=== PATIENT | male | born 1940 | race Caucasian/White ===

== ENCOUNTER 2017-07-21 12:40 | Outpatient (CLI) | payer MEDICARE | END 2017-07-21 12:41 | disposition home or self-care (01) | LOC: BICRAD 12:40 | PROVIDERS: ATTEND Internal Medicine Rheumatology | DX: M16.12 Unilateral primary osteoarthritis, left hip (principal) ==

== ENCOUNTER 2017-11-24 12:37 | Outpatient (CLI) | payer MEDICARE ==
--- NOTE | 2017-11-24 13:27 | RAD ---
TWO VIEWS CHES: DATE: 11/24/17. HISTORY: Dyspnea. COMPARISON: Comparison is made to previous exam from 10/19/2017. FINDINGS: Two views chest are obtained. PA and lateral views of the chest demonstrate ectasia of the aorta. The lungs are well aerated. No evidence of acute intrathoracic abnormality is seen. NO evidence of effusions, pneumothorax, or pneu mothorax is seen. IMPRESSION: Ectasia of the aorta; otherwise, unremarkable 2 views chest. POS: [facility]
== END 2017-11-24 12:38 | disposition home or self-care (01) ==
LOC: RAD 12:37
PROVIDERS: ATTEND Internal Medicine Critical Care Medicine
DX: R06.00 Dyspnea, unspecified (principal); I77.819 Aortic ectasia, unspecified site
CPT/HCPCS: 71046

== ENCOUNTER 2017-12-18 00:16 | Day surgery (SDC) | payer MEDICARE ==
[2017-12-18 01:08] LABS: #Basophils 0.1 thou/uL (0.0-0.2); #Eosinphils 0.1 thou/uL (0.0-0.7); #Lymphocytes 1.6 thou/uL (1.20-3.40); #Monocytes 0.6 thou/uL (0.11-0.59); #Neutrophils 11.3 thou/uL (1.40-6.50); %Basophils 0.4 % (0.0-1.0); %Eosinophils 0.7 % (0.0-10.0); %Lymphocytes 11.8 % (21.0-51.0); %Monocytes 4.2 % (0.0-10.0); %Neutrophils 82.9 % (42.0-75.0); Hemoglobin 15.3 g/dL (14.0-18.0); Mean Corpuscular Hemoglobin 30.6 pg (27.0-31.0); Mean Corpuscular Volume 92.8 fL (78.0-98.0); Mean Platelet Volume 7.8 fL (7.4-10.4); Platelet Count 247 thou/uL (130-400); RBC Distribution Width 11.4 % (11.5-14.5); Red Blood Cell (RBC) Count 4.99 mill/uL (4.70-6.10); White Blood Cell (WBC) Count 13.6 thou/uL (4.8-10.8)
[2017-12-18 01:33] LABS: ALT (SGPT) 32 U/L (8-55); AST (SGOT) 38 U/L (5-34); Albumin 4.5 g/dL (3.4-4.8); Alkaline Phosphatase 39 U/L (40-150); Anion Gap 15 mmol/L (10-20); BUN (Urea Nitrogen) 21 mg/dL (8.4-25.7); Bilirubin, Total 0.8 mg/dL (0.2-1.2); Calc. Creatinine Clearance 0 mL/min (70-130); Calcium 9.4 mg/dL (7.8-10.44); Carbon Dioxide 25 mmol/L (23-31); Chloride 104 mmol/L (98-107); Estimated GFR-MDRD 87; Globulin 3.6 g/dL (2.4-3.5); Glucose 120 mg/dL (83-110); Potassium 5.1 mmol/L (3.5-5.1); Protein, Total 8.1 g/dL (5.8-8.1); Sodium 139 mmol/L (136-145)
[2017-12-18 01:36] LABS: CKMB 0.8 ng/mL (0-6.6); Troponin I Less than 0.010 ng/mL (< 0.028)
--- NOTE | 2017-12-18 03:37 | OP ---
DATE OF PROCEDURE: 12/18/2017 SURGEON: Memo Mccall M.D. [employer]PER[employer] SURGEON: None. PROCEDURE: Esophagogastroduodenoscopy, diagnostic. INDICATION: 1. Possible esophageal foreign body. 2. Chronic dysphagia. MEDICATIONS: See anesthesia record. FINDINGS: After discussion of the risks, benefits and alternatives of the procedure, informed consen t was obtained and witnessed. Pre-endoscopic cardiopulmonary examination was satisfactory. Timeout was performed before sedation was achieved. Sedation was achieved with anesthesia assistance in the endoscopy unit. A Pentax adult upper endoscope was placed into the oropharynx and passed through the cricopharyngeus under direct visualization. The esophageal mucosa appeared normal in the proximal a nd mid esophagus. In the distal esophagus for the last 3-4 cm, there is severe maceration of the eso phageal mucosa, consistent with recent esophageal foreign body impaction. There is no esophageal aury d bolus present at the time of the examination; however. There is no esophageal mass or discrete str icture visualized, that was difficult to tell due to the degree of acute maceration. The endoscope w as passed easily into the stomach. Forward and retroflexed views of the entire gastric mucosa were o btained. The gastric mucosa appeared normal. The endoscope was passed through the pylorus and into the first and second portions of the duodenum, which also appeared normal. I did not perform esophag eal dilation on this examination, due to the severe maceration of the distal esophagus and increased risk of complications in this context. The upper endoscope was completely withdrawn and the patient allowed to recover. The patient tolerated the procedure well. There were no immediate post-procedur e complications. IMPRESSION: 1. Severe maceration of the distal esophagus just above the GE junction, consistent with recent esop hageal food bolus impaction, which is now passed. 2. No esophageal mass or stricture visualized. 3. Otherwise, normal esophagogastroduodenoscopy. RECOMMENDATIONS: 1. We will start him on a daily PPI. 2. He needs to chew his food thoroughly. 3. Liquid diet tomorrow, advance slowly as tolerated the following day. 4. We will plan to repeat EGD on an outpatient basis in the next few weeks, for reassessment and to perform esophageal dilation.
--- NOTE | 2017-12-18 03:39 | HP ---
DATE OF CONSULTATION: 12/18/2017 REQUESTING PHYSICIAN: Dr. Rutherford. REASON FOR CONSULTATION: Suspected esophageal food bolus impaction. HISTORY OF PRESENT ILLNESS: Mark Islas is a 77-year-old man with a documented history of COPD a nd dementia. He tells me that he has never undergone EGD in the past, but that for several years, he has had intermittent dysphagia to solids usually meat. He chews with dentures, but he eats pretty f ast. About 12 hours ago, he was eating chicken pretty fast and he felt as if it lodged behind the st ernum. He immediately had a sensation that it was stuck and started spitting up his secretions. He was unable to tolerate any oral fluid intake for the rest of the day. He presented to the [facility] where measures such as glucagon and Coke were tried, all with no effect. He was transferred here [facility]. The patient was quite uncomfortable for most of 12 hours, though he state s within the last 30 minutes, he feels a bit better and feels like maybe this has passed. He says th is has happened several times before, but never for this long and again he has never been evaluated b efore. He denies any abdominal pain or cough. He has no other symptoms. He is hemodynamically stab le. PAST MEDICAL HISTORY: COPD, dementia, hyperlipidemia, depression. ALLERGIES: He reports allergy to CODEINE, also has documented allergies to LEVAQUIN and PREDNISONE. OUTPATIENT MEDICATIONS: Atorvastatin, memantine, donepezil, aspirin 81 mg daily, duloxetine, albuter ol inhaler. FAMILY HISTORY: Noncontributory. SOCIAL HISTORY: He does drink some alcohol every day. No drug use. He is a former smoker but quit 40 years ago. PHYSICAL EXAMINATION: VITAL SIGNS: Temperature 98.1, blood pressure 153/77, pulse 80, 95% oxygen saturation on room air. GENERAL: Elderly 77-year-old man lying in bed comfortably in no distress. MENTAL: He is alert and oriented to person, place. SKIN: No jaundice, no rashes were palpable. EYES: No scleral icterus. Extraocular movements intact. ENT: Mucous membranes moist, no oral lesions. LYMPH: No submandibular, supraclavicular lymphadenopathy. THYROID: Nontender to palpation. HEART: Regular rate and rhythm. LUNGS: Clear to auscultation bilaterally. ABDOMEN: Bowel sounds present, soft and nontender to palpation. EXTREMITIES: No peripheral edema. VESSELS: Radial pulses 2+ bilaterally. NEUROLOGICAL: Cranial nerves II-XII intact bilaterally. No focal deficits. ASSESSMENT AND PLAN: 1. Possible esophageal foreign body. 2. Chronic dysphagia. The patient has had a marked improvement in his foreign body sensation, just over the past few minute s, and is no longer spitting up his secretions. That being said, he says this has been going on for a long time and this was the worst episode he has ever had, and he has never been evaluated before. We will go ahead and proceed with upper endoscopy tonight to assure no continued obstruction, rule ou t malignancy or stricture. I will consider esophageal dilation depending on findings, though we will have to see what the esophagus looks like in the context of a recent food impaction before making th at decision. The patient desires to proceed.
[2017-12-18] MEDS ORDERED: PROPOFOL 200 MG/20 ML VIAL ONE (15:29)
--- NOTE | 2017-12-19 08:44 | EKG ---
Test Reason : Blood Pressure : / mmHG Vent. Rate : 081 BPM Atrial Rate : 081 BPM P-R Int : 130 ms QRS Dur : 134 ms QT Int : 410 ms P-R-T Axes : 021 132 045 degrees QTc Int : 476 ms Normal sinus rhythm Right bundle branch block Abnormal ECG Confirmed by CARMELITA BANDA ([id number]) on 12/19/2017 8:44:25 AM Referred By: Confirmed By:CARMELITA BANDA
== END 2017-12-18 04:20 | disposition home or self-care (01) ==
LOC: ERS 00:16 → SDC/OP 02:31
PROVIDERS: ATTEND Internal Medicine
PROC: 0DJ08ZZ Inspection of Upper Intestinal Tract, Via Natural or Artificial Opening Endoscopic (ICD-10-PCS; principal; 2017-12-18)
DX: R13.10 Dysphagia, unspecified (principal); K22.8 Other specified diseases of esophagus; J44.9 Chronic obstructive pulmonary disease, unspecified; F03.90 Unspecified dementia, unspecified severity, without behavioral disturbance, psychotic disturbance, mood disturbance, and anxiety; E78.5 Hyperlipidemia, unspecified; F32.9 Major depressive disorder, single episode, unspecified; Z87.891 Personal history of nicotine dependence; Z79.82 Long term (current) use of aspirin; Z79.899 Other long term (current) drug therapy; Z88.5 Allergy status to narcotic agent; Z88.8 Allergy status to other drugs, medicaments and biological substances
CPT/HCPCS: 80053; 82553; 84484; 85025; 93005; 96360; J2704

== ENCOUNTER 2018-01-11 13:27 | Outpatient (CLI) | payer MEDICARE | END 2018-01-11 13:28 | disposition home or self-care (01) | LOC: CP 13:27 | PROVIDERS: ATTEND Internal Medicine Critical Care Medicine | DX: J44.9 Chronic obstructive pulmonary disease, unspecified (principal) | CPT/HCPCS: 94010; 94727 ==

== ENCOUNTER 2018-06-02 09:21 | Day surgery (SDC) | payer MEDICARE ==
[2018-06-01 15:47] VITALS: BMI 25.2
[2018-06-02] MEDS ORDERED: Albuterol Sulfate 1.25 MG/3 ML NEB ONE ×2 (09:36→12:52)
[2018-06-02 10:02] LABS: Hemoglobin 15.1 g/dL (14.0-18.0)
[2018-06-02 10:29] LABS: Anion Gap 11 mmol/L (10-20); BUN (Urea Nitrogen) 16 mg/dL (8.4-25.7); Calc. Creatinine Clearance 100 mL/min (70-130); Calcium 9.7 mg/dL (7.8-10.44); Carbon Dioxide 32 mmol/L (23-31); Chloride 101 mmol/L (98-107); Estimated GFR-MDRD Greater than 90; Glucose 107 mg/dL (83-110); Potassium 4.2 mmol/L (3.5-5.1); Sodium 140 mmol/L (136-145)
[2018-06-02] MEDS ORDERED: EPINEPHrine 1 MG/ML AMP ONE (11:41)
[2018-06-02] MEDS ORDERED: Fentanyl 100 MCG/2 ML VIAL ONE (11:46)
[2018-06-02] MEDS ORDERED: Midazolam HCl 2 mg/2 ml Vial ONE (11:46)
[2018-06-02] MEDS ORDERED: Succinylcholine Chloride 20 MG/ML 10 ml SYRINGE FS ONE (11:54)
[2018-06-02] MEDS ORDERED: Lidocaine 1% PF 5 ML VIAL ONE (11:54)
[2018-06-02] MEDS ORDERED: PROPOFOL 200 MG/20 ML VIAL ONE (11:54)
[2018-06-02] MEDS ORDERED: Albuterol Sulfate HFA (OR ONLY) ONE (12:14)
[2018-06-02] MEDS ORDERED: traMADol HCl 50 MG TAB ONE (14:40)
--- NOTE | 2018-06-02 21:25 | EKG ---
Test Reason : PREOP Blood Pressure : / mmHG Vent. Rate : 065 BPM Atrial Rate : 065 BPM P-R Int : 188 ms QRS Dur : 148 ms QT Int : 436 ms P-R-T Axes : 053 098 050 degrees QTc Int : 453 ms Normal sinus rhythm Right bundle branch block Abnormal ECG When compared with ECG of 18-DEC-2017 00:47, QRS axis Shifted left Confirmed by DENZEL DAO, DR. Ba ([id number]) on 06/02/2018 9:25:36 PM Referred By: MARIEL Confirmed By:DR. Jesenia MAHONEY MD
--- NOTE | 2018-06-03 13:54 | OP ---
DATE OF PROCEDURE: 06/02/2018 PREOPERATIVE DIAGNOSES: 1. Right true vocal cord lesion. 2. Chronic cough. PROCEDURE PERFORMED: 1. Microsuspension laryngoscopy with right vocal cord biopsy. 2. Rigid bronchoscopy. DESCRIPTION OF PROCEDURE: After consent was obtained, the patient was identified, brought to the operating room, and placed on the operating room table in supine position. General anesthesia was obtained prior to intubation. The vocal cords were treated with topical lidocaine and the patient underwent rigid bronchoscopy and there were no abnormalities of the subglottis and trachea all the way down to the hilum and both mainstem bronchi were also found to be normal. There was no evidence of inflammation or foreign body. We then removed the bronchoscope and placed a Hunsucker jet ventilating endotracheal tube. We then positioned our laryngoscope and suspended it from the Garcia tray when this allowed for then endoscopic visualization of the larynx. Patient was found to have some exophytic lesions superficially on the right anterior true cord. These were removed with a biopsy that was obtained and they were removed with the fg microtec shaver. Photographs were obtained before and after the specimen was sent for histologic evaluation. Then, topical lidocaine was then reapplied. Bleeding was controlled with topical adrenaline. Patient was awakened, extubated, taken to Recovery in stable condition prior to discharge home. Job ID: [id number]
== END 2018-06-02 15:10 | disposition home or self-care (01) ==
LOC: SDC 09:21
PROVIDERS: ATTEND Specialist
PROC: 0CBT8ZZ Excision of Right Vocal Cord, Via Natural or Artificial Opening Endoscopic (ICD-10-PCS; principal; 2018-06-02)
DX: D14.1 Benign neoplasm of larynx (principal); M19.90 Unspecified osteoarthritis, unspecified site; I10 Essential (primary) hypertension; E78.5 Hyperlipidemia, unspecified; N40.0 Benign prostatic hyperplasia without lower urinary tract symptoms; F03.90 Unspecified dementia, unspecified severity, without behavioral disturbance, psychotic disturbance, mood disturbance, and anxiety; Z79.82 Long term (current) use of aspirin; Z79.899 Other long term (current) drug therapy; Z88.1 Allergy status to other antibiotic agents; Z88.5 Allergy status to narcotic agent; Z88.8 Allergy status to other drugs, medicaments and biological substances
CPT/HCPCS: 36415; 80048; 85014; 85018; 88305; 93005; 93010; J0171; J2001; J2250; J2704; J3010

== ENCOUNTER 2018-07-14 08:44 | Day surgery (SDC) | payer MEDICARE ==
[2018-07-06 12:41] VITALS: BMI 21.6
[2018-07-14] MEDS ORDERED: Albuterol Sulfate 2.5 mg/3 ml Neb NEB SCH (09:45)
[2018-07-14 10:00] LABS: Anion Gap 13 mmol/L (10-20); BUN (Urea Nitrogen) 20 mg/dL (8.4-25.7); Calc. Creatinine Clearance 78 mL/min (70-130); Carbon Dioxide 30 mmol/L (23-31); Chloride 104 mmol/L (98-107); Estimated GFR-MDRD Greater than 90; Glucose 97 mg/dL (83-110); Potassium 4.3 mmol/L (3.5-5.1); Sodium 143 mmol/L (136-145)
[2018-07-14] MEDS ORDERED: EPINEPHrine 1 MG/ML AMP ONE (10:45)
[2018-07-14] MEDS ORDERED: Fentanyl 100 MCG/2 ML VIAL ONE (10:50)
[2018-07-14] MEDS ORDERED: SUGAMMADEX SODIUM 500 MG/5 ML VIAL ONE (11:02)
[2018-07-14 11:06] LABS: Hemoglobin 14.8 g/dL (14.0-18.0)
[2018-07-14] MEDS ORDERED: Propofol 500 MG/50 ML VIAL ONE (11:22)
[2018-07-14] MEDS ORDERED: ePHEDrine 50 MG/ML VIAL ONE (16:45)
[2018-07-14] MEDS ORDERED: PROPOFOL 200 MG/20 ML VIAL ONE (16:45)
[2018-07-14] MEDS ORDERED: Rocuronium Bromide 10 MG/ML (10ML VIAL) ONE (16:45)
[2018-07-14] MEDS ORDERED: Lidocaine 1% PF 5 ML VIAL ONE (16:45)
[2018-07-14] MEDS ORDERED: Ondansetron PF 4 MG/2 ML Vial ONE (16:45)
[2018-07-14] MEDS ORDERED: Glycopyrrolate 0.2 MG/ML 5 ML SYRINGE ONE (16:45)
[2018-07-14] MEDS ORDERED: Dexamethasone 20 MG/5 ML VIAL ONE (16:45)
--- NOTE | 2018-07-15 13:07 | OP ---
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 PROCEDURE PERFORMED: Microsuspension laryngoscopy with destruction of right vocal cord cancer using a CO2 laser. PROCEDURE IN DETAIL: The patient was identified, brought to the operating room and placed in the operating room table in a supine position. General anesthesia was obtained using a Tod jet ventilating tube. The patient was then positioned for a laryngoscopy and the laryngoscope was suspended. After the larynx was exposed, we used the CO2 laser by means of an OmniFlex wand to destroy the superficial mucosa on the mid portion of the right vocal cord. This was done both on the medial and superficial surface of the vocal cord. We then treated the vocal cord with topical adrenaline and lidocaine. We awakened the patient and took him to the recovery room, where he remained in stable condition prior to discharge to home. Job ID: [id number]
--- NOTE | 2018-07-27 09:29 | OP ---
DATE OF PROCEDURE: 07/14/2018 PREOPERATIVE DIAGNOSES: 1. Right mid vocal cord lesion. 2. Right mid-cord squamous cell carcinoma. POSTOPERATIVE DIAGNOSES: 1. Right mid vocal cord lesion. 2. Right mid-cord squamous cell carcinoma. PROCEDURE PERFORMED: Microsuspension laryngoscopy with destruction of right malignant vocal cord lesion using CO2 laser. PROCEDURE IN DETAIL: After consent was obtained, the patient was identified and brought to the operating room and placed on the operating table in supine position. General endotracheal anesthesia was obtained. The patient was positioned for surgery. The larynx was visualized as the laryngoscope was placed and suspended from the operating table. We then proceeded with positioning the microscope and magnifying the lesion under microscopic visualization. The flexible CO2 energy was delivered via the OmniGuide laser cable by way of a handheld delivery device. The superficial midportion of the vocal cord was addressed as was the medial surface, where the previous tumor had been identified and about a 1 to 2 mm margin was obtained beyond the previous lesion. Topical adrenaline and lidocaine were then applied. The patient was awakened and extubated and taken to the recovery room in a stable condition prior to discharge home. Job ID: [id number]
== END 2018-07-14 13:03 | disposition home or self-care (01) ==
LOC: SDC 08:44
PROVIDERS: ATTEND Specialist
PROC: 0C5S8ZZ Destruction of Larynx, Via Natural or Artificial Opening Endoscopic (ICD-10-PCS; principal; 2018-07-14)
DX: C32.0 Malignant neoplasm of glottis (principal); M62.89 Other specified disorders of muscle; R51 Headache; I10 Essential (primary) hypertension; E78.5 Hyperlipidemia, unspecified; M19.90 Unspecified osteoarthritis, unspecified site; F03.90 Unspecified dementia, unspecified severity, without behavioral disturbance, psychotic disturbance, mood disturbance, and anxiety; N40.0 Benign prostatic hyperplasia without lower urinary tract symptoms; Z87.891 Personal history of nicotine dependence; Z88.5 Allergy status to narcotic agent; Z88.1 Allergy status to other antibiotic agents; Z88.8 Allergy status to other drugs, medicaments and biological substances; Z79.82 Long term (current) use of aspirin; Z79.899 Other long term (current) drug therapy
CPT/HCPCS: 80048; 85014; 85018; J0171; J1100; J2001; J2405; J2704; J3010; J3490; J7620

== ENCOUNTER 2018-08-11 10:38 | Outpatient (CLI) | payer MEDICARE | END 2018-08-11 10:39 | disposition home or self-care (01) | PROVIDERS: ATTEND Specialist | DX: I69.191 Dysphagia following nontraumatic intracerebral hemorrhage (principal); J69.0 Pneumonitis due to inhalation of food and vomit; I69.091 Dysphagia following nontraumatic subarachnoid hemorrhage | CPT/HCPCS: 74230 ==